=== PATIENT | male | born 1970 | race African-American/Black ===

== ENCOUNTER 2020-08-07 17:56 | Emergency (ER) | payer SELFPAY ==
[~2020-08-07] VITALS: Ht 175.3 cm; Wt 81.6 kg
[2020-08-07] MEDS ORDERED: HALOPERIDOL LACTATE 5MG/ML VIAL IM ONE (20:15)
[2020-08-07] MEDS ORDERED: LORAZEPAM 2MG/ML CPJ IM ONE (20:15)
[2020-08-07 20:20] LABS: BASOPHILS % 0.9 % (0.0-2.0); EOSINOPHILS % 9.2 % (0.0-5.0); HEMATOCRIT. 36.9 % (42.0-52.0); HEMOGLOBIN. 12.4 g/dL (14.0-18.0); LYMPHOCYTES % 40.4 % (20.0-50.0); MEAN CORPUSCULAR HEMOGLOBIN 29.7 pg (28.0-32.0); MEAN CORPUSCULAR VOLUME 88.9 fL (80.0-94.0); MEAN PLATELET VOLUME 7.4 fl (7.4-10.4); MONOCYTES % 6.6 % (2.0-8.0); NEUTROPHILS % 42.9 % (40.0-76.0); PLATELET 346 x1000/uL (130-400); RED BLOOD CELL COUNT 4.15 mill/uL (4.7-6.1); RED CELL DISTRIBUTION WIDTH 14.1 % (11.6-14.6)
[2020-08-07 20:25] LABS: CHLORIDE 111 mEq/L (98-107)
[2020-08-07 21:03] LABS: ETHANOL BLOOD 315 mg/dL
[2020-08-08] MEDS ORDERED: HALOPERIDOL LACTATE 5MG/ML VIAL IM ONE (01:00)
[2020-08-08 06:27] VITALS: BP 114/64
== END 2020-08-08 06:30 | disposition home or self-care (01) ==
LOC: ER 17:56
DX: F10.129 Alcohol abuse with intoxication, unspecified (principal); S00.212A Abrasion of left eyelid and periocular area, initial encounter; E11.9 Type 2 diabetes mellitus without complications; F17.200 Nicotine dependence, unspecified, uncomplicated; I10 Essential (primary) hypertension; X58.XXXA Exposure to other specified factors, initial encounter; Y93.89 Activity, other specified; Y92.89 Other specified places as the place of occurrence of the external cause; Y99.8 Other external cause status; Y90.8 Blood alcohol level of 240 mg/100 ml or more
CPT/HCPCS: 36415; 70450; 72125; 80048; 80320; 85025; 99285; Z7610; G0480